=== PATIENT | male | born 1945 | race Caucasian/White ===

== ENCOUNTER 2022-01-07 15:49 | Outpatient (CLI) | payer MEDICARE ==
[2022-01-07 16:49] VITALS: BP 130/79
--- NOTE | 2022-01-07 16:49 | SLEEP CARE CONSULTATION ---
Information from patient questionnaire entered by Dana Cesar MA. I have reviewed and concur with the information entered by Dana Cesar MA. This document represents the service I personally performed and the decisions made by , Steff Ricketts ARNP. History of Present Illness Service Date and Time: 01/07/2022 1549 Reason for Visit: New patient (ONSET 08/16/18, ) Chief Complaint: reports: Snoring, Observed pauses in breathing, Frequent awakenings at night Date of Onset: 21 years Usual bedtime: 11 pm to midnight Time it takes to fall asleep: withing 10-15 minutes Snores at night: Yes Observed to quit breathing while asleep: Yes Sleeps alone due to snoring: No Number of times waking at night: 2-4 times Reasons for waking at night: reports: Snoring, Bathroom. denies: Choking, Gasping for air Toss, Turn, or Twitch while sleeping: Yes Recalls having dreams: Yes Usually gets out of bed at: 0700 Feels refreshed in the morning: Yes Morning headache: No (seldom, hardly ever) Sleepy or fatigued during the day: No Ever fallen asleep while driving: No (does not drive at night) Takes day naps: No Prior sleep studies: No Additional HPI information: I had the pleasure of seeing RADHA CULVER today regarding the possibility of him having a sleep disorder. His current complaints are snoring, observed pauses in breathing and frequent night awakenings. He has been having trouble sleeping for a long time. 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 He has been having some depression for which he was put on Zoloft which does seem to be helping him sleep better. He is also taking 10 mg of melatonin for the last 6 weeks that help him to fall asleep. - Parasomnia Symptoms Ever been unable to move upon waking from sleep: No Walks in sleep: No Talks in sleep: No Ever acted out dreams in sleep: No Ever felt weak in the knees when startled or emotional: No Bothered by creepy, crawly, restless sensations in legs: No Problems with memory or concentration: Yes (concentration; hard to stay on task, easily distracted) Subjective Initial [place] Sleepiness Scale score: 4 (12/2021) Past Medical History Past Medical History: reports: Depression, GERD, Other (right knee replacement; left hip replacement; cataract surgery bilateral) Social History The patient's occupation is a RE. Patient is and lives in [place]. Have you smoked in the past 12 months: No Alcohol use: Yes Alcohol amount and frequency: 2-3 drinks daily Caffeine use: Yes Caffeine amount and frequency: 16 ounces coffee daily Family History Family history of sleep disordered breathing: No Allergies and Home Medications Known drug allergies: No Drug allergies reviewed: Yes (NKDA) Home medication list reviewed: Yes Allergy and home medication list: Allergies No Known Drug Allergies Allergy (Verified 05/27/15 07:16) Medications: Atorvastatin 20 mg daily Zoloft 75 mg daily Melatonin 10 mg nightly D3 5000 IU Omeprazole 20 mg daily Review of Systems Cardiovascular: reports: palpitations (rare), irregular heart rate or pulse (rare) Gastrointestinal: reports: heartburn, difficulty swallowing (occasionally) Urinary: reports: frequency Neurological: reports: gait or balance problems (occasionally) Psychiatric: reports: anxiety, depression Ear/Nose/Throat: reports: nasal congestion, dry mouth/throat, injury to nose (nose broken couple times when young), tonsillectomy, wisdom teeth removed Endocrine: reports: increased urination Musculoskeletal: reports: joint pain (stiffness from time to time), muscle pain or cramping (leg cramps at night sometimes) Physical Exam Vital signs obtained and entered by: KADE MAE Blood Pressure: 130/79 (RIGHT, RESP 16, PULSE 82) Heart Rate: 86 O2 Saturation: 98 Height: 6 ft 2 in Weight: 203 lb (CLOTHES) Body Mass Index: 26.0 BMI Classification: Overweight Neck circumference: 15 (INCHES) Mouth and throat: narrow oropharynx Soft palate: long Hard palate: normal Uvula: normal Uvula visualization: 25% Mallampati Class III Tongue: normal in size Tonsils: absent bilaterally Neck: normal w/o lymphadenopathy or thyromegaly Heart: regular rate and rhythm Lungs: clear bilaterally Impression and Plan 1. Suspected Obstructive Sleep Apnea-Hypopnea Syndrome, as suggested by a history of loud and irregular snoring, observed cessation of breath while asleep, gasping or choking in sleep, frequent awakening during the night and cognitive impairment. Narrow oropharynx and obesity are common predisposing factors for obstructive sleep apnea-hypopnea syndrome. I recommend proceeding to polysomnography to confirm the diagnosis and to assess severity. Patient is concerned that he might not be able to sleep the night of the sleep study if he has to do it in the sleep lab. I offered and he accepted a one-time dose of 5 mg zolpidem for the night of the sleep study. He will be given a prescription if his insurance requires him to do an in lab sleep study. He will not need it for the home study. If the patient has significant sleep disordered breathing, a manual CPAP titration study will also be performed to find the optimal treatment pressure. I informed the patient of what the sleep studies involve and after some discussion, obtained agreement to proceed. The pathophysiology of obstructive sleep apnea-hypopnea syndrome was discussed with the patient and health risks of cardiovascular and cerebrovascular disease if not treated. Risks of drowsy driving discussed in detail and patient advised to avoid long distance driving and to assembler for puller over machine at the first sign of drowsiness. Patient agreed to plan. * Schedule polysomnography * 5 mg Zolpidem for night of sleep study if patient does an in-lab PSG * Avoid long distance driving or driving when feeling sleepy. * Avoid alcohol, sedative and muscle relaxant around bedtime. * Attempt to lose weight. * Review instructions provided by trained office staff on how to prepare for the sleep study. * Return for follow-up after sleep study completed. Counseling Topics: Weight loss health impact Visit Type: In Office Time Spent with Patient (minutes): 38 Provider Statement: I spent 100% of the Face to Face Visit with the patient with greater than 50% spent counseling the patient and coordination of care.
== END 2022-01-07 15:50 | disposition home or self-care (01) ==
LOC: SC 15:49
PROVIDERS: ATTEND Nurse Practitioner Family
DX: R06.81 Apnea, not elsewhere classified (principal); G47.8 Other sleep disorders; R41.89 Other symptoms and signs involving cognitive functions and awareness; R06.83 Snoring
CPT/HCPCS: 99203; G0463; 99212

== ENCOUNTER 2022-01-15 12:22 | Outpatient (CLI) | payer MEDICARE | END 2022-01-15 12:23 | disposition home or self-care (01) | LOC: SC 12:22 | PROVIDERS: ATTEND Nurse Practitioner Family | DX: G47.33 Obstructive sleep apnea (adult) (pediatric) (principal); R09.02 Hypoxemia | CPT/HCPCS: G0399 ×2; 95806 ==

== ENCOUNTER 2022-02-03 09:59 | Outpatient (CLI) | payer MEDICARE ==
--- NOTE | 2022-02-03 11:17 | XRAY Report ---
PROCEDURE: Knee 3 View LT INDICATIONS: PAIN OF LEFT KNEE JOINT TECHNIQUE: 3 views of the left knee(s) were acquired. COMPARISON: None. FINDINGS: Bones: No fractures or dislocations. No suspicious bony lesions. There is moderate femorotibial maricruz int space narrowing and small patellofemoral osteophytes. Soft tissues: No joint effusion. No suspicious soft tissue calcifications. IMPRESSION: Moderate degenerative change. Reviewed by: Asuncion Paul MD on 02/03/2022 11:16 AM PDT Approved by: Asuncion Paul MD on 02/03/2022 11:16 AM PDT Station ID: [id number]
== END 2022-02-03 10:00 | disposition home or self-care (01) ==
LOC: DI.S 09:59
PROVIDERS: ATTEND Registered Nurse
DX: M17.12 Unilateral primary osteoarthritis, left knee (principal)

== ENCOUNTER 2022-02-12 10:13 | Outpatient (CLI) | payer MEDICARE ==
[2022-02-12 11:05] VITALS: BP 171/90
--- NOTE | 2022-02-12 11:05 | SLEEP CARE CONSULTATION ---
Information from patient questionnaire entered by Dana Cesar MA. I have reviewed and concur with the information entered by Dana Cesar MA. This document represents the service I personally performed and the decisions made by , Steff Ricketts ARNP. History of Present Illness Service Date and Time: 02/12/2022 1013 Initial [place] Sleepiness Scale score: 4 (12/2021) Current [place] Sleepiness Scale score: 2 (02/12/2022) Additional HPI information: RADHA CULVER returns for follow up and results of the recently performed home sleep study. I explained the pathophysiology behind obstructive sleep apnea. We then spent quite a bit of time discussing different treatment options. For mild obstructive sleep apnea, surgery and oral appliance are alternatives to nasal CPAP therapy but in moderate or severe cases, nasal CPAP is the most effective and reliable treatment. Because apnea is primarily in supine position, then positional management therapy could be effective. Methods discussed such as positioning with pillows to prevent supine sleep. I reviewed the impact of weight changes on sleep apnea and strongly recommended losing weight. After some discussion, the patient is trying to decide between positional therapy and the nasal CPAP therapy. I explained how CPAP machine works and what to expect when using the machine. Using CPAP every night in order to get used to it was emphasized. Patient advised to put CPAP mask on before getting into bed so as not to fall asleep without CPAP. To assist acclimation to CPAP use, it could also be used for a short time during day while reading or watching TV. The patient was instructed to call the CPAP supplier to discuss any mechanical problem that may occur. If the mask given is uncomfortable or is difficult to keep on through the night even with adjustment, contact the CPAP supplier as many will replace with another mask style if notified before 30 days. If snoring or perceives is not getting enough air or too much air from the machine, notify this office. Patient was cautioned about risks of drowsy driving until sleepiness symptoms resolve. Patient denies drowsy driving. Sleep Study - Results Type of Sleep Study: Home sleep study (F/U HST, 01/16/2022 [facility], POS) Prior sleep studies: No Polysomnography/Home Sleep Study results: Physician Impression: The quality of the study is good. The length of the study is adequate (> 240 minutes). Please also see the tabulated and graphic data. 1. Obstructive Sleep Apnea-Hypopnea (ICD-10 G47.33), moderate, with an AHI of 17.6/hr and deb SaO2 of 83%. During the study, the patient had 66 apneas (66 obstructive, 0 central, 0 mixed) and 20 hypopneas. The longest episode lasted 135.5 seconds. The respiratory events occurred almost exclusively during supine sleep (supine AHI was 58.6 and non-supine, 2.52). 2. Hypoxemia (ICD-10 R09.02), mild, with the lowest oxygen saturation of 83 % and 3.0 minutes with SaO2 under 90%. Baseline oxygen saturation was normal (Average oxygen saturation was 93%). Allergies and Home Medications Home medication list reviewed: Yes (Zoloft, statin (not new)) Allergy and home medication list: Allergies No Known Drug Allergies Allergy (Verified 05/27/15 07:16) Review of Systems Review of systems same as previous: No (Knee strain - cortisone injection few days ago) Physical Exam Vital signs obtained and entered by: Barbara CESAR CMA AALYNETTE Blood Pressure: 171/90 (right, ) Cuff size: wrist Heart Rate: 62 O2 Saturation: 98 (cloth mask) Height: 6 ft 2 in Weight: 210 lb Body Mass Index: 26.9 BMI Classification: Overweight Impression and Plan 1. Obstructive Sleep Apnea-Hypopnea Syndrome, moderate, with lowest oxygen saturation of 83%. Positive pressure therapy could benefit depression and gastric reflux. The patient is weighing between a CPAP and positional therapy. I will write order for him to be started on nasal autoCPAP therapy with pressure set at 4-15 cmH2O, but if he so chooses he will start positional therapy. Compliance guidelines for CPAP also reviewed. A copy of compliance guidelines will be given for reference at check out. Because the apnea is more severe supine, I instructed to avoid sleeping supine using pillow positioning until able to start CPAP use. I showed hims some positional belt examples in the office that he can obtain commercially if he chooses to try positional therapy. He voiced understanding. 2. Hypoxemia, mild, with the lowest oxygen saturation of 83 % and 3.0 minutes with SaO2 under 90%. His baseline oxygen saturation was normal with an average oxygen saturation of 93%. * Nasal auto CPAP therapy, pressure at 4-15 cm H2O or positional therapy. * Avoid supine sleep. * Return one month after CPAP obtained or one month of positional therapy. I will assess response to therapy and compliance at that time. Counseling Topics: Sleeping position, Weight loss health impact Visit Type: In Office Time Spent with Patient (minutes): 27 Provider Statement: I spent 100% of the Face to Face Visit with the patient with greater than 50% spent counseling the patient and coordination of care.
== END 2022-02-12 10:14 | disposition home or self-care (01) ==
LOC: SC 10:13
PROVIDERS: ATTEND Nurse Practitioner Family
DX: G47.33 Obstructive sleep apnea (adult) (pediatric) (principal); R09.02 Hypoxemia; E66.3 Overweight; Z68.29 Body mass index [BMI] 29.0-29.9, adult
CPT/HCPCS: 99213; G0463; 99212

== ENCOUNTER 2022-05-20 13:25 | Outpatient (CLI) | payer MEDICARE ==
--- NOTE | 2022-05-20 13:20 | SLEEP CARE CONSULTATION ---
Information from patient questionnaire entered by Sierra Pelaez MA. I have reviewed and concur with the information entered by Sierra Pelaez MA. This document represents the service I personally performed and the decisions made by , Steff Ricketts ARNP. History of Present Illness Service Date and Time: 05/20/2022 1300 Previous diagnosis: Moderate, Obstructive Sleep Apnea-Hypopnea Syndrome AHI: 17.6 (in 2021) Reason for follow up: three month (Positional therapy F/U) Prior sleep studies: No Type of Sleep Study: Home sleep study (F/U HST, 01/16/2022 [facility], POS) HPI additional information: RAHDA CULVER was diagnosed to have moderate, AHI 17.6, obstructive sleep apnea-hypopnea syndrome and returned today for Positional therapy three month follow-up. Sleep Study - Results Type of Sleep Study: Home sleep study (F/U HST, 01/16/2022 [facility], POS) Prior sleep studies: No CPAP Compliance Data Compliance data discussion: He states he has been able to sleep on his sides. He tried the Slumberbump positioning belt at first but is finding he is now able to sleep on his sides and is not sleeping on back. Subjective On therapy, patient: reports: sleeping better, awakening more refreshed, being more awake and alert during the day, more rested overall. denies: drowsiness while driving Initial [place] Sleepiness Scale score: 4 (12/2021) Current [employer] Sleepiness Scale score: 2 Allergies and Home Medications Drug allergies reviewed: Yes (NKDA) Home medication list reviewed: Yes (Melatonin 10 mg; Atorvastatin 20 mg; Zoloft 100 mg) Review of Systems Review of systems same as previous: Yes (no changes) Physical Exam Vital signs obtained and entered by: RAEANN KIRBY Height: 6 ft 2 in Weight: 205 lb (pt report) Body Mass Index: 26.3 BMI Classification: Overweight Impression and Plan 1. Obstructive Sleep Apnea-Hypopnea Syndrome, moderate. Using positional therapy, the patient has better sleep quality and is more rested overall. Patient started using a positional belt to help him to stay off of his back to control his sleep apnea. He states after a while he was able to stay on his sides without assistance by the belt. He has noticed that he is sleeping well and not having fatigue during the daytime. He states he started Zoloft prior to starting CPAP and has been noticing an improvement of his sleep at that time as well. It appears that the combination of treating his depression and his sleep apnea has had good benefit for him. Patient has no concerns today and we will follow-up with him in about a year. He may return sooner if he should develop any problems. Patient's apnea severity and rationale for treatment to reduce apnea, improve sleep quality and reduce cardiovascular and cerebrovascular events was reviewed. 2. Overweight, unspecified. Currently patients BMI is 26.3. Thus patient is advised to lose weight. -Continue positional therapy -Attempt to lose weight -Call this office if any problems -Return for follow up in 1 year, or sooner if concerns arise Counseling Topics: Sleeping position, Weight loss health impact Follow up with Sleep Care in: 1 year Visit Type: Telehealth Video Video Type: Doximity Patient Location: Home Location of Provider: Office Patient agrees and consents to this telehealth visit type: Yes Patient agrees to have their insurance billed: Yes Time Spent with Patient (minutes): 12 Provider Statement: I spent 100% of the Telehealth Video Call with the patient with greater than 50% spent counseling the patient and coordination of care.
== END 2022-05-20 13:26 | disposition home or self-care (01) ==
LOC: SC 13:25
PROVIDERS: ATTEND Nurse Practitioner Family
DX: G47.33 Obstructive sleep apnea (adult) (pediatric) (principal); E66.3 Overweight; Z68.26 Body mass index [BMI] 26.0-26.9, adult

== ENCOUNTER 2022-11-05 11:14 | Outpatient (CLI) | payer MEDICARE ==
[2022-11-05] MEDS ORDERED: iohexoL-300 100 ML VIAL ONE (11:42)
[2022-11-05] MEDS ORDERED: iohexoL-300 100 ML VIAL IVP ONE (13:39)
[2022-11-05] MEDS ORDERED: DIATRIZOATE MEGLU/DIATRIZO SOD 30 ML BOTTLE PO ONE (13:39)
--- NOTE | 2022-11-05 14:25 | CT Report ---
PROCEDURE: CHEST W INDICATIONS: ABN WEIGHT LOSS CONTRAST:100ml Omnipaque 300 TECHNIQUE: After the administration of intravenous contrast, 1 mm axial images were acquired from the pulmonary apices through the posterior costophrenic angles. Axial 5 mm soft tissue kernel reconstructions were performed as well as 8 mm axial MIP and coronal and sagittal 5 mm reformations. For radiation dose reduction, the following was used: automated exposure control, adjustment of mA and/or kV according to patient size. COMPARISON: Same day CT abdomen and pelvis. FINDINGS: Image quality: Excellent. Lungs and pleura: -Right apex pulmonary nodule measuring 0.7 cm, (3/56). -Right apex pulmonary nodule measuring 0.6 cm, (3/59). -Right upper lobe pulmonary nodule measuring 0.3 cm, (3/130). A few calcified granulomas. Pleural apical scarring. No acute air space opacities. No pleural effusi ons or pneumothorax. Central and peripheral airways are patent and normal in caliber. Mediastinum: Heart size is normal. No pericardial effusion. No mediastinal or hilar adenopathy by size criteria. Thoracic aorta and central pulmonary arteries are normal in size. Esophagus is mouna l in caliber. No hiatal hernia. Bones and chest wall: No suspicious bony lesions. No vertebral body compression fractures. No axil sonia or supraclavicular adenopathy by size criteria. The thyroid is normal in size and there are no incidental findings. Abdomen: Please see submitted dictated same day CT abdomen and pelvis. Small low-density right renal cyst. Hepatic steatosis. Small calcified granulomas in the liver. IMPRESSION: A few small prominent nodules. Largest at the right apex measuring 0.7 cm. No adenopathy. Reviewed by: Mumtaz Billy MD on 11/05/2022 2:24 PM PDT Approved by: Mumtaz Billy MD on 11/05/2022 2:24 PM PDT Station ID: [id number]
--- NOTE | 2022-11-05 14:37 | CT Report ---
PROCEDURE: ABDOMEN/PELVIS W INDICATIONS: ABN WEIGHT LOSS CONTRAST: 100ml Omnipaque 300 TECHNIQUE: After the administration of oral and intravenous contrast, 5 mm thick sections acquired from the diap hragms to the symphysis. 5 mm thick coronal and sagittal reformats were acquired. For radiation dos e reduction, the following was used: automated exposure control, adjustment of mA and/or kV accordin g to patient size. COMPARISON: Same day CT chest. FINDINGS: Image quality: Good. Beam hardening artifact from left hip arthroplasty. ABDOMEN: Lung bases: Please see separate dictated same-day CT chest. No pleural effusion. Solid organs: Liver and spleen are normal in size. Hepatic steatosis. Gallbladder is unremarkable. Biliary system is non dilated. Pancreas enhances normally. No adrenal nodules. Kidneys demonstrat e normal size and enhancement, without hydronephrosis. Benign right renal cyst measuring 3.7 cm. Peritoneum and bowel: Bowel loops demonstrate normal wall thickness and caliber. Diverticulosis. Nor mal appendix. No free fluid or air. Nodes and vessels: No retroperitoneal or mesenteric adenopathy by size criteria. Aorta and inferior vena cava are normal in size. Miscellaneous: No ventral hernias. PELVIS: Genitourinary: Bladder wall thickness is normal. Prostate brachytherapy seeds. Miscellaneous: No inguinal hernias or adenopathy. Bones: Left total hip arthroplasty. Intermediate density superior to the left acetabular cup. No rachael ical disruption. Acetabular cup screw within this area. No vertebral body compression fractures. IMPRESSION: 1. Questionable osseous lesion superior to the left acetabular cup. There is intermediate density rat her than medullary bone. Pseudotumor from prosthesis could have a similar appearance. Recommend maribel rison to prior imaging if available. Bone scan or MRI could be considered for further evaluation. 2. Prostate brachytherapy seeds. No sclerotic osseous lesion demonstrated. No adenopathy. 3. Hepatic steatosis. Reviewed by: Mumtaz Billy MD on 11/05/2022 2:36 PM PDT Approved by: Mumtaz Billy MD on 11/05/2022 2:36 PM PDT Station ID: [id number]
== END 2022-11-05 11:15 | disposition home or self-care (01) ==
LOC: DI 11:14
PROVIDERS: ATTEND Registered Nurse
DX: R91.8 Other nonspecific abnormal finding of lung field (principal); M89.9 Disorder of bone, unspecified; K76.0 Fatty (change of) liver, not elsewhere classified; Z92.3 Personal history of irradiation
CPT/HCPCS: 71260; 74177; Q9963; Q9967

== ENCOUNTER 2023-07-21 08:42 | Day surgery (SDC) | payer MEDICARE ==
[2023-07-21] MEDS ORDERED: LACTATED RINGERS 1,000 ML IV ONE ×2 (08:47→10:27)
--- NOTE | 2023-07-21 09:38 | ANESTHESIA ---
Pre-Anesthesia VS, & Labs - Diagnosis screening colonoscopy - Procedure colonoscopy Vital Signs: Temp Pulse Resp BP Pulse Ox O2 Flow Rate 36.9 C 73 12 146/73 H 100 100 07/21/23 08:48 07/21/23 08:48 07/21/23 08:48 07/21/23 08:48 07/21/23 08:48 07/21/23 08:48 Height: 6 ft 2 in Weight (kg): 83.9 kg Body Mass Index: 23.7 BMI Classification: Normal - NPO >8 hours Home Medications and Allergies Home Medications: Ambulatory Orders Famotidine [Pepcid] 20 mg PO DAILY 07/20/23 Ped Mvit A,C,D3 No.21/Fluoride [Vit A,D,C & Fluor 0.25 mg/ml] 0.25 mg PO DAILY 05/27/15 Atorvastatin [Lipitor] 1 tab PO DAILY 05/20/22 Sertraline HCl 1 tab PO DAILY 05/20/22 Famotidine [Pepcid] 20 mg PO DAILY 07/20/23 Allergies/Adverse Reactions: Allergies Allergy/AdvReac Type Severity Reaction Status Date / Time No Known Drug Allergies Allergy Verified 05/27/15 07:16 Anes History & Medical History - Anesthetic History Anesthesia Complications: reports: No previous complications - Medical History Cardiovascular: reports: High cholesterol Pulmonary: reports: Sleep apnea (does not use cpap) Gastrointestinal: reports: GERD Urinary: reports: Other Musculoskeletal: reports: Osteoarthritis Endocrine/Autoimmune: reports: None Skin: reports: None Psychosocial: reports: Alcohol (2-3 shots whiskey per day) - Surgical History General: reports: Colonoscopy Eyes Ears Nose Throat (EENT): reports: Cataracts Orthopedic: reports: Knee replacement, Carpal Tunnel surgery, Other Exam General: Alert, Oriented x3, Cooperative, No acute distress Dental: Poor dentition Mouth Openin Fingerbreadth Neck Mobility: Normal Mallampati classification: II Thyromental Distance: 4-6 cm Mental/Cognitive Status: Alert/Oriented X3, Normal for patient Plan Anesthesia Type: General, Total IV Consent for Procedure(s) Verified and Reviewed: Yes Code Status: Attempt Resuscitation ASA classification: 2-Mild systemic disease Is this case an emergency?: No
[2023-07-21] MEDS ORDERED: PROPOFOL 500 MG/50 ML 500 MG/50 ML VIAL ONE (09:50)
[2023-07-21 10:59] VITALS: BP 135/81; O2SAT 98
--- NOTE | 2023-07-21 11:15 | ANESTHESIA POST OP EVALUATION ---
Anesthesia Post Eval - Post Anesthesia Eval Vitals: Last Vital Signs Temp 36.4 C L 07/21/23 10:45 Pulse 76 07/21/23 10:45 Resp 16 07/21/23 10:45 BP 135/81 H 07/21/23 10:45 Pulse Ox 98 07/21/23 10:45 O2 Flow Rate 100 07/21/23 08:48 CV Function Including HR & BP: Stable Pain Control: Satisfactory Nausea & Vomiting: Negative Mental Status: Baseline Respiratory Status: Airway Patent Hydration Status: Satisfactory Anesthesia Complications: None
== END 2023-07-21 08:43 | disposition home or self-care (01) ==
LOC: SDS 08:42
PROVIDERS: ATTEND Surgery
PROC: 0DBN8ZX Excision of Sigmoid Colon, Via Natural or Artificial Opening Endoscopic, Diagnostic (ICD-10-PCS; 2023-07-21)
PROC: 0DBH8ZX Excision of Cecum, Via Natural or Artificial Opening Endoscopic, Diagnostic (ICD-10-PCS; 2023-07-21)
PROC: 0DBK8ZX Excision of Ascending Colon, Via Natural or Artificial Opening Endoscopic, Diagnostic (ICD-10-PCS; principal; 2023-07-21 09:46)
DX: Z12.11 Encounter for screening for malignant neoplasm of colon (principal); D12.0 Benign neoplasm of cecum; D12.5 Benign neoplasm of sigmoid colon; D12.2 Benign neoplasm of ascending colon; K57.30 Diverticulosis of large intestine without perforation or abscess without bleeding; K64.2 Third degree hemorrhoids; G47.33 Obstructive sleep apnea (adult) (pediatric); R19.4 Change in bowel habit
CPT/HCPCS: 45385; J7120

== ENCOUNTER 2023-08-23 10:19 | Outpatient (CLI) | payer MEDICARE ==
--- NOTE | 2023-09-01 11:21 | CT Report ---
PROCEDURE: Chest WO INDICATIONS: MULTIPLE LUNG NODULES, follow-up TECHNIQUE: A CT scan of the chest was performed. Intravenous contrast media was not administered. Images were re corded and evaluated at appropriate window settings. Reformats: axial MIP of the chest, coronal and s agittal. For radiation dose reduction, the following was used: automated exposure control, adjustment of mA and/or kV according to patient size. COMPARISON: CT of the chest without contrast dated 03/04/2023. FINDINGS: Image quality: Excellent. Lungs and pleura: Slightly emphysematous appearance of the lungs. Stable appearance of the 6 mm media l right upper lobe apical pulmonary nodule (image 52 series 3) . The previously seen pleural irregula rity/scarring of the posterior and lateral aspect of the right upper lobe and apex seen from images 4 3 through 80, series 3) also appears unchanged; the 3 mm nodule in the upper segment of the right low er lobe (image 131 series 3) also appears unchanged. Left apical scarring also appears unchanged. No pleural effusions. No pneumothorax. Mediastinum: Heart size is normal. No pericardial effusion.No large vessel abnormality . No mediastin al adenopathy by size criteria otherwise she is limited by lack of IV contrast. Severe coronary calc ifications are present. Chest wall and lower neck: Approximately 1 cm right thyroid lesion, partially visualized., No axillar y or supraclavicular adenopathy by size. Bones: No aggressive osseous abnormality. Minimal kyphosis. Upper Abdomen: Right renal cystic lesion measuring at least 3.5 cm appears unchanged; evaluation limi layla by lack of IV contrast. IMPRESSION: 1. No acute cardiopulmonary abnormality seen. Stable appearance of the previously identified pulmonar y nodules. Again, recommend follow-up CT chest in 6 months. 2. Approximately 1 cm right thyroid lesion is partially visualized. Ultrasound may provide additional diagnostic benefit if indicated. Reviewed by: Marc Ferreira MD on 08/23/2023 2:52 PM PST Approved by: Marc Ferreira MD on 08/23/2023 2:52 PM PST Station ID: [id number]
== END 2023-08-23 10:20 | disposition home or self-care (01) ==
LOC: DI 10:19
PROVIDERS: ATTEND Registered Nurse
DX: R91.8 Other nonspecific abnormal finding of lung field (principal); E07.89 Other specified disorders of thyroid

== ENCOUNTER 2023-09-27 09:45 | Outpatient (CLI) | payer MEDICARE ==
[~2023-09-27 09:45] MED LIST: LIDOCAINE-MPF 1% 5 ML VIAL ONE
[2023-09-27] MEDS: LIDOCAINE-MPF 1% 5 ML VIAL TD ONE (11:13)
--- NOTE | 2023-09-27 12:43 | Ultrasound Report ---
PROCEDURE: FNA Bx w/US Gdn 1st Les INDICATIONS: GOITER TECHNIQUE: The indications, alternatives, benefits, risks, and complications of the procedure were explained to the patient. Written informed consent was obtained and placed in the chart. The area of interest wa s examined sonographically and a site was chosen for ultrasound guided percutaneous sampling. The sk in was prepared and draped in the usual fashion, and anesthetized with 1% lidocaine infiltrated from the skin down to the lesion. Multiple passes were then performed, with contents emptied into an appr [facility] pathology specimen container. A bandage was applied to the area of access at completion of t he study. COMPARISON: None. FINDINGS: Location(s) of lesion(s) sampled: Right lower lobe [place]: 25 gauge hypodermic needles. Number of passes: 5 Medications: 1% lidocaine for local anaesthesia. Complications: None. IMPRESSION: Successful ultrasound-guided right lower lobe fine needle aspiration, with cytology results pending. Reviewed by: Marc Ferreira MD on 09/27/2023 12:42 PM PST Approved by: Marc Ferreira MD on 09/27/2023 12:42 PM PST Station ID: [id number]
== END 2023-09-27 09:46 | disposition home or self-care (01) ==
LOC: DI 09:45
PROVIDERS: ATTEND Registered Nurse
DX: E04.2 Nontoxic multinodular goiter (principal)
CPT/HCPCS: 10005

== ENCOUNTER 2024-02-22 09:29 | Outpatient (CLI) | payer MEDICARE ==
--- NOTE | 2024-02-22 19:52 | CT Report ---
PROCEDURE: Chest WO INDICATIONS: LUNG NODULES TECHNIQUE: A CT scan of the chest was performed. Intravenous contrast media was not administered. Images were re corded and evaluated at appropriate window settings. Reformats: axial MIP of the chest, coronal and s agittal. For radiation dose reduction, the following was used: automated exposure control, adjustment of mA and/or kV according to patient size. COMPARISON: 08/23/2023, 03/04/2023, 11/05/2022. FINDINGS: Image quality: Diagnostic. Chest wall and lower neck: 1.5 cm right lobe thyroid nodule No axillary or supraclavicular adenopathy by size. Lungs and pleura: No consolidation. No pleural effusions. No pneumothorax. Pulmonary nodules are sta ble as follows (all described on series 4): 1. Right apex 7 mm, image 20 of series 4. 2. Right apex 6 mm pulmonary nodule, stable, image 22 3. Stable 3 mm pulmonary nodule, posterior right upper lobe, image 43 Biapical pleural-parenchymal scarring. No new or increasing pulmonary nodules. Mediastinum: Heart size is normal. No pericardial effusion. No large vessel abnormality. No mediastin al adenopathy by size criteria. Bones: No aggressive osseous abnormality. Upper Abdomen: Unremarkable. IMPRESSION: 1. Stable pulmonary nodules since October,, likely benign. 2. Thyroid nodule. It is noted that the patient underwent thyroid ultrasound dated 09/17/2023 with FNA of a thyroid nodule dated 09/27/2023. Therefore, recommend follow-up as described in the thyroid repor ts Comment: Consider follow-up CT chest in 11/07. This would demonstrate nodule stability x2 years. Reviewed by: Mina Tran MD on 02/22/2024 7:51 PM PDT Approved by: Mina Tran MD on 02/22/2024 7:51 PM PDT Station ID: [id number]
== END 2024-02-22 09:30 | disposition home or self-care (01) ==
LOC: DI 09:29
PROVIDERS: ATTEND Registered Nurse
DX: R91.8 Other nonspecific abnormal finding of lung field (principal); E04.1 Nontoxic single thyroid nodule